=== PATIENT | female | born 1980 | race Two or more races ===

== ENCOUNTER 2024-06-16 09:39 | Emergency (ER) | payer OTHER ==
[~2024-06-16] VITALS: Ht 170.2 cm; Wt 126.0 kg
[2024-06-16 09:43] VITALS: BP 154/91; PULSE 90; RESP 18; TEMP 97.6; O2SAT 98
[2024-06-16] MEDS: PERTUSS(ACELL),DIPH,TET/PF 0.5 ML SYRINGE [ADULT] IM. ONE (10:59)
[2024-06-16] MEDS: KETOROLAC TROMETHAMINE 60 MG/2 ML VIAL IM ONE (10:59)
[2024-06-16] MEDS: ACETAMINOPHEN/CODEINE 300-30 MG TABLET PO ONE (11:02)
[2024-06-16] MEDS: BACITRACIN 28 GM OINTMENT TP ONE (11:02)
[2024-06-16] MEDS ORDERED: BACI28.410 TP (11:28)
[2024-06-16] MEDS ORDERED: ACET-2080 PO (11:28)
[2024-06-16] MEDS ORDERED: IBUP-1554 PO (11:28)
== END 2024-06-16 12:01 | disposition home or self-care (01) ==
LOC: EMS 09:45
DX: T23.202A Burn of second degree of left hand, unspecified site, initial encounter (principal); T31.0 Burns involving less than 10% of body surface
CPT/HCPCS: 99284; 90715; 16020; 90471; 96372; J1885